=== PATIENT | male | born 1950 | race Caucasian/White ===

== ENCOUNTER 2018-09-23 07:32 | Day surgery (SDC) | payer OTHER ==
[2018-09-16 16:07] VITALS: BMI 24.3
[2018-09-23] MEDS ORDERED: PROPOFOL 20 ML ONE ×2 (08:02)
[2018-09-23] MEDS ORDERED: LIDOCAINE HCL/PF 2% SDV 5ML VIAL ONE (08:02)
[2018-09-23 09:39] VITALS: TEMP 98.1
[2018-09-23 09:47] VITALS: BP 121/70; PULSE 70
--- NOTE | 2018-09-25 17:56 | PATH ---
Surgical Pathology Report Patient Name: PHILIP CHAN [facility]. Rec. #: [id number] /Age/Gender: 1950 (Age: 68) / M Account: [id number] Location: [facility] Taken: 09/23/2018 Received: 09/22/2018 Reported: 09/25/2018 Physicians: Michael Rizo M.D. Specimen(s) Received SIGMOID COLON Clinical History Screening colonoscopy Postoperative diagnosis: Colon polyp Final Diagnosis SIGMOID COLON POLYP, POLYPECTOMY: TUBULAR ADENOMA Electronically Signed Anamaria Kerr M.D. Gross Description Received in formalin, labeled "sigmoid colon polyp" is a hurd, irregular portion of soft tissue measuring 0.1 cm. in greatest dimension. The specimen is submitted in toto in one cassette. 09/24/2018
== END 2018-09-23 09:30 | disposition short-term general hospital (02) ==
LOC: FASU-ENDO 07:32
PROVIDERS: ATTEND Internal Medicine Gastroenterology
PROC: 0DBN8ZX Excision of Sigmoid Colon, Via Natural or Artificial Opening Endoscopic, Diagnostic (ICD-10-PCS; principal; 2018-09-23 08:00)
DX: Z12.11 Encounter for screening for malignant neoplasm of colon (principal); D12.5 Benign neoplasm of sigmoid colon
CPT/HCPCS: 36415; 71045-TC-FY; 80053; 82550; 82553; 84484; 85025; 85610; 88305-TC; 93005; 99282-25

== ENCOUNTER 2018-09-23 09:32 | Emergency (ER) | payer OTHER ==
[2018-09-23 09:36] VITALS: TEMP 98.6; BMI 24.3
--- NOTE | 2018-09-23 09:36 | PDOC ---
History of Present Illness - General Chief Complaint: Irregular Heart Beat Stated Complaint: AFIB Time Seen by Provider: 09/23/18 09:35 - History of Present Illness Initial Comments: 09/23/18 10:12 Chief complaint: The patient has no complaints. Sent to the emergency room from [facility] [place]. After his colonoscopy was performed, he was noted to have an irregular heartbeat. History of present illness: Patient underwent a routine colonoscopy without complications. Was administered propofol and lidocaine. After the procedure, the anesthesiologist noted an irregular heartbeat and he was transferred to the emergency room for evaluation. The patient is unaware of irregular heartbeat in the past or atrial fibrillation Review of systems: Denies palpitations, lightheadedness, dizziness, vertigo, chest pain, shortness of breath, abdominal pain, nausea, vomiting, diarrhea, diaphoresis, visual or focal neurologic symptoms. Remainder systems reviewed and found to be negative Past medical history: Patient denies serious medical or surgical problems past or present. Takes no medication. Regularly exercises without symptoms. Social history: Active, no tobacco alcohol or nonprescription drugs, no disabilities, stable home and family, denies stress Family history: Reviewed and noncontributory including early coronary artery disease, CVA, PVD, diabetes, cancer. Physical exam: Alert and oriented well-developed well-nourished no acute distress cheerful and cooperative. Specifically denies chest pain Afebrile, vital signs normal except for an irregular heart rate of approximately 70/m PERRLA, fundi benign, ENT clear Supple without bruit mass or nodes Chest clear with full breath sounds throughout bilaterally CV irregularly irregular 70/m. No murmurs rubs or gallops pulses full and symmetric no JVD or edema no bruits Abdomen soft nontender without mass or organomegaly. Neurological C2 to 12 intact. Strength full and symmetric. No focal sensory or motor deficits. Cerebellum intact Extremities no CCE Skin clear, no rash, adequate turgor and wet mucous membranes Impression: New onset atrial fibrillation, possibly the result of anesthetic agents. Rule out acute cardiac event Plan: EKG and enzymes, CBC and chemistries, chest x-ray, monitoring, further medical therapy depending on results. Past History - Past Medical History Allergies/Adverse Reactions: Allergies Allergy/AdvReac Type Severity Reaction Status Date / Time No Known Allergies Allergy Verified 09/23/18 09:34 Home Medications: Ambulatory Orders NK [No Known Home Medication] 09/16/18 Anemia: No Asthma: No Cancer: Yes (PROSTATE) Cardiac Disorders: No CVA: No COPD: No CHF: No Dementia: No Diabetes: No GI Disorders: No Disorders: No HTN: No Hypercholesterolemia: No Liver Disease: No Seizures: No Thyroid Disease: No - Surgical History Abdominal Surgery: Yes (HERNIA REPAIR) Appendectomy: No Cardiac Surgery: No Cholecystectomy: No Lung Surgery: No Neurologic Surgery: No Orthopedic Surgery: No - Suicide/Smoking/Psychosocial Hx Smoking History: Never smoked Have you smoked in the past 12 months: No Hx Alcohol Use: Yes (1/2 GLASS WINE WINE) Drug/Substance Use Hx: No Substance Use Type: None Hx Substance Use Treatment: No Cardiac Specific PMH - Complaint Specific PMHX Pacemaker: No *Physical Exam - Vital Signs Last Vital Signs Temp Pulse Resp BP Pulse Ox 98.6 F 72 18 125/70 100 09/23/18 09:34 09/23/18 11:17 09/23/18 11:17 09/23/18 11:17 09/23/18 11:17 ED Treatment Course - LABORATORY CBC & Chemistry Diagram: 09/23/18 09:54 09/23/18 09:54 - ADDITIONAL ORDERS Additional order review: Laboratory Results 09/23/18 09/23/18 09/23/18 09:54 09:54 09:54 PT with INR 13.3 H INR 1.19 Sodium 137 Potassium 4.4 Chloride 101 Carbon Dioxide 31 H Anion Gap 5 L BUN 11 Creatinine 1.1 Creat Clearance w eGFR > 60 Random Glucose 95 Calcium 8.6 Total Bilirubin 1.3 H AST 29 ALT 21 Alkaline Phosphatase 47 Creatine Kinase 259 Creatine Kinase Index 0.7 CK-MB (CK-2) 2.0 Troponin I < 0.03 Total Protein 6.3 L Albumin 3.4 L 09/23/18 09:54 RBC 4.71 MCV 95.9 MCHC 32.8 RDW 12.5 MPV 9.8 Neutrophils % 65.8 Lymphocytes % 22.8 Monocytes % 10.4 H Eosinophils % 0.7 Basophils % 0.3 - RADIOLOGY Radiology Studies Ordered: Category Date Time Status CHEST X-RAY PORTABLE* [RAD] Stat Radiology 09/23/18 09:37 Completed - Medications Given in the ED: ED Medications Discontinued Medications Generic Name Dose Route Start Last Admin Trade Name Freq PRN Reason Stop Dose Admin Aspirin 162 mg 09/23/18 09:53 09/23/18 10:04 Asa - PO 09/23/18 09:54 162 mg ONCE ONE Administration Medical Decision Making - Medical Decision Making 09/23/18 10:18 EKG upon arrival in the emergency room: Atrial fibrillation 72 bpm, rate controlled. Probable LVH. Q waves are present in V1 through V3, possibly indicating an old anteroseptal RI. There are inverted T waves in V4 through V6, possibly indicating lateral ischemia. There are also nonspecific ST-T wave changes in the inferior leads. There is approximately [address] elevation in lead V3 but no other significant ST elevations are present in adjacent leads. 09/23/18 11:30 Old EKG was obtained from primary physician Dr. Kameron Dixon dated 2016. The present changes were not apparent on prior examination, except for Q waves in leads V1 and V2, which appeared to be similar. Dr. Parrish knee was contacted for cardiology consultation. He agreed to evaluate the patient is transferred to [facility]. He recommended contacting Dr. Rizo, pants cutter, for recommendation of when anticoagulation can begin Dr. Rizo was contacted by phone. He stated that one polyp was removed with a cold loop. He believed that anticoagulation could start immediately without probable bleeding complication. 09/23/18 11:42 It was recommended that the patient be admitted for further cardiac evaluation and cardiology consult. The findings were discussed at length, including the worrisome EKG findings have a fall since his last EKG, his irregular heart rhythm, the danger of blood clots and stroke as a result of the arrhythmia, and the discussions with Dr. Parrish and Dr. Rizo, cardiology and GI, who also recommended strongly that the patient be admitted monitored and have further evaluation. However, the patient states that he declines admission, will follow up with his primary physician and a friend who is a social science manager within 24 hours. All of his lab results and his EKG were provided to him. It was again emphasized that if his rhythm remains atrial fibrillation he will need a blood thinner (anticoagulant) to begin no later than 24 hours and this should be discussed with his physician. He is an intelligent person who understands and agrees to the above recommendations. Discharged AGAINST MEDICAL ADVICE, but asymptomatic but still in atrial fibrillation. There were no significant abnormalities in his chest x-ray or lab results, specifically CK and troponin were negative. Despite these negative values, the patient was made aware that it would still be early in the course of a heart injury and that subsequent values, if monitored, could be elevated if a heart attack was evolving. *DC/Admit/Observation/Transfer Diagnosis at time of Disposition: New onset atrial fibrillation, Acute coronary syndrome - Discharge Dispostion Disposition: AGAINST MEDICAL ADVICE Condition at time of disposition: Unchanged/Unknown - Referrals Referrals: Kameron Dixon [Primary Care Provider] - 24 hours Brent Hernandez MD [Staff Physician] - 24 hours - Patient Instructions Printed Discharge Instructions: DI for Atrial Fibrillation, DI for Acute Coronary Syndrome - Post Discharge Activity
[2018-09-23] MEDS ORDERED: ASPIRIN 81 MG CHEWABLE TABLETS PO ONE (09:53)
[2018-09-23] MEDS ORDERED: ASPIRIN 81 MG CHEWABLE TABLETS ONE (09:54)
[2018-09-23 10:15] LABS: BASO % 0.3 % (0-2.0); EOS % 0.7 % (0-4.5); HEMATOCRIT 45.2 % (35.4-49); HEMOGLOBIN 14.8 GM/dl (11.7-16.9); LYMPH % 22.8 % (8-40); MCH 31.4 pg (25.7-33.7); MCHC 32.8 g/dl (32.0-35.9); MEAN CELL VOLUME 95.9 fl (80-96); MEAN PLT VOLUME 9.8 fl (7.5-11.1); MONO % 10.4 % (3.8-10.2); NEUT % 65.8 % (42.8-82.8); PLATELET COUNT 206 K/MM3 (134-434); RBC 4.71 M/mm3 (4.00-5.60); RDW 12.5 % (11.9-15.9); WHITE BLOOD COUNT 6.4 K/mm3 (4.0-10.8)
[2018-09-23 10:21] LABS: INR 1.19 (0.82-1.09); PROTHROMBIN TIME (PATIENT) 13.3 SEC (10.2-13.0)
[2018-09-23 10:24] LABS: ALBUMIN 3.4 g/dl (3.5-5.0); ALK PHOS 47 U/L (32-92); ANION GAP 5 MMOL/L (8-16); BILIRUBIN,TOTAL 1.3 mg/dl (0.2-1.0); BLOOD UREA NITROGEN 11 mg/dl (7-18); CALCIUM 8.6 mg/dl (8.4-10.2); CHLORIDE 101 mmol/L (98-107); CO2 31 mmol/L (22-28); CREATININE 1.1 mg/dl (0.6-1.3); GLUCOSE,RANDOM 95 mg/dl (74-106); POTASSIUM 4.4 mmol/L (3.5-5.1); SGOT/AST 29 U/L (10-42); SGPT/ALT 21 U/L (10-40); SODIUM 137 mmol/L (136-145); TOT PROT 6.3 g/dl (6.4-8.3)
[2018-09-23 11:18] VITALS: BP 125/70; PULSE 72
--- NOTE | 2018-09-23 11:35 | EKG ---
Test Reason : Blood Pressure : / mmHG Vent. Rate : 061 BPM Atrial Rate : 234 BPM P-R Int : 000 ms QRS Dur : 082 ms QT Int : 430 ms P-R-T Axes : 000 048 034 degrees QTc Int : 432 ms ATRIAL FIBRILLATION CANNOT RULE OUT ANTEROSEPTAL INFARCT , AGE UNDETERMINED T WAVE ABNORMALITY, CONSIDER LATERAL ISCHEMIA ABNORMAL ECG NO PREVIOUS ECGS AVAILABLE Confirmed by ОЛЕГ ALVAREZ, TRU ([id number]) on 09/23/2018 11:35:31 AM Referred By: HAMILTON WINSTON Confirmed By:TRU DENNEY MD
== END 2018-09-23 11:54 | disposition left against medical advice (07) ==
LOC: FER 09:32
DX: I48.91 Unspecified atrial fibrillation (principal); I24.9 Acute ischemic heart disease, unspecified; Z85.46 Personal history of malignant neoplasm of prostate
CPT/HCPCS: 36415; 71045-TC-FY; 80053; 82550; 82553; 84484; 85025; 85610; 93005; 99282-25